=== PATIENT | female | born 1935 | race Caucasian/White ===

== ENCOUNTER 2024-06-25 22:02 | Emergency (ER) | payer MEDICARE, SELFPAY ==
--- NOTE | 2024-06-25 22:08 | XR_ITS ---
Examination: AP chest single view Technique one AP portable semiupright chest single view Exam date and time: 10/26/2023 10:35 PM Indications: Coughing low O2 saturation today. Findings: Normal heart size No pneumonia or pulmonary edema Prominent osteopenia Impression: No pneumonia or pulmonary edema
--- NOTE | 2024-06-25 22:08 | EKG_ITS ---
[facility] Test Date: 2024-06-25 Pat Name: EDWINA PINZON Department: Room: - Gender: Female Insurance Verification Rep: : [id number] Requested By: Reynaldo Douglas Order Number: [id number] Reading MD: Reynaldo Douglas Measurements Intervals [place] Rate: 76 P: 48 ID: [id number] QRS: -41 QRSD: 86 T: 28 QT: 377 QTc: 425 Interpretive Statements SINUS RHYTHM WITH SHORT ID INTERVAL LEFT AXIS DEVIATION [QRS AXIS < -30] MODERATE T-WAVE ABNORMALITY, CONSIDER ANTERIOR ISCHEMIA [-0.1+ mV T-WAVE IN V3/V4] Compared to ECG 04/19/2023 11:56:23 Short ID interval now present T-wave abnormality now present Possible ischemia now present /store/S0/[id number]/ecg/[id number].pdf
--- NOTE | 2024-06-25 22:09 | PD.EDADULT ---
ED General RME/HPI General Chief complaint: Shortness of Breath/Dyspnea Stated complaint: SOB Time Seen by Provider: 06/25/24 22:08 Arrival date/time: 06/25/24 22:02 CC: Oxygen saturations of 88% with a cough HPI patient presents to the ER via EMS with stable vital signs after the son states the patient, who recently was diagnosed with pneumonia and started on azithromycin, has noted to have oxygen saturation of 88%. The patient has baseline demented and poor historian. Patient states that she has no problems . Currently patient denies chest pain difficulty breathing headache nausea vomiting or diarrhea. Has a persistent wet nonproductive cough. Related Data Home Medications ?Medication ?Instructions ?Recorded ?Confirmed levothyroxine 50 mcg tablet 50 mcg PO EVERYOTHERDAY 06/10/20 12/24/22 levothyroxine 75 mcg tablet 75 mcg PO EVERYOTHERDAY 06/10/20 12/24/22 calcitriol 0.25 mcg capsule 0.25 mcg PO MWF 12/25/22 12/25/22 Previous Rx's ?Medication ?Instructions ?Recorded acetaminophen 325 mg tablet 650 mg (2 x 325 mg) PO Q4HR PRN 12/28/22 (Tylenol) Pain Or Fever > 101 #1 tab apixaban 2.5 mg tablet (Eliquis) 2.5 mg PO BID #30 tabs 12/28/22 bisacodyl 10 mg rectal suppository 10 mg CO QDAY PRN Constipation #12 12/28/22 ea lactulose 20 gram/30 mL oral 20 ml PO DAILY #3 mL 12/28/22 solution cephalexin 500 mg capsule 500 mg PO BID #20 caps 03/30/23 azithromycin 500 mg tablet 500 mg PO QDAY 3 days #3 tabs 06/26/24 (Zithromax TRI-ZORA) cefdinir 300 mg capsule 300 mg PO BID #14 caps 06/26/24 prednisone 20 mg tablet 20 mg PO QDAY 3 days #3 tabs 06/26/24 Allergies Allergy/AdvReac Type Severity Reaction Status Date / Time ciprofloxacin Allergy Intermediate GI UPSET Verified 06/25/24 22:17 prednisone Allergy Intermediate EXTREME Verified 06/25/24 22:17 NAUSEA / VOMITING / DIARRHEA Review of Systems Review of Systems ROS Unobtainable: unobtainable due to mental status Past Medical History Past Medical History NEUROLOGIC: Negative Neurological Disorders, Cerebrovascular Accident, Transient Ischemic Attacks (TIA) or Seizures CARDIAC: Negative Cardiac Disorders, Myocardial Infarction, Hypercholesterolemia, Congestive Heart Failure or Hypertension RESPIRATORY: Negative Chronic Obstructive Pulmonary Disease (COPD) GASTROINTESTINAL: Negative Gastrointestinal Disorders, Gastrointestinal Bleed, Hemorrhoids or Gastroesophageal Reflux Disease GENITOURINARY: Negative Genitourinary Disorders, Renal Disease or Kidney Stones REPRODUCTIVE: Negative Pelvic Inflammatory Disease MUSCULOSKELETAL: Negative Musculoskeletal Disorders ENDOCRINE: Positive Endocrine Disorders and Hypothyroidism; Negative Diabetes Mellitus Type 1 or Diabetes Mellitus Type 2 HEMATOLOGIC: Negative Blood Disorders OTHER HISTORY: Positive Falls and Blood Transfusions; Negative Hospitalization, Autoimmune Disease, Down Syndrome, Developmental Delay, Blood Transfusion Reaction, Anesthesia Reactions or Cancer Family History FAMILY HISTORY: Negative Family Respiratory Disorders, Family Cardiac Disorders or Family Gastrointestinal Problems Surgical History SURGICAL: Positive Thyroidectomy Social History SMOKING STATUS: Former smoker SECOND HAND EXPOSURE: No ED Exam Narrative Physical exam: [General: Thin, but not deconditioned. Appears not in any acute distress Head normocephalic HEENT: Within acceptable limits Neck is supple nontender Chest equal chest rise nontender to palpation Respiratory: Bibasilar crackles, upper lobes clear to auscultation. CV: Rate rhythm is regular no murmurs rubs or clicks Abdomen is soft nontender no masses positive bowel sounds all 4 quadrants Back: No CVA tenderness no spinous process tenderness from cervical spine thoracic and lumbar spine Skin: Intact no petechiae rash induration ulceration or crepitus Extremities: Moving all extremity against resistance cap refill less than 2 seconds neurosensory intact Neuro: Awake alert oriented x1, person, Glascow coma 15 no focal deficits] Course Quality Measures none Orders Category Date Time Status EKG (ED ONLY) *Do not use* NOW Care 06/25/24 22:08 Completed EKG (ED Only) Stat Exams 06/25/24 22:08 Draft XR chest 1V Stat Exams 06/25/24 22:08 Completed B-Type Natriuretic Peptide Stat Lab 06/25/24 22:33 Completed CBC Stat Lab 06/25/24 22:33 Completed Comprehensive Metabolic Panel Stat Lab 06/25/24 22:33 Completed Drug Screen,Urine Stat Lab 06/25/24 22:50 Completed LDH (Lactate Dehydrogenase) Stat Lab 06/25/24 22:33 Completed Magnesium Stat Lab 06/25/24 22:33 Completed Partial Thromboplastin Time Stat Lab 06/25/24 22:33 Completed Prothrombin Time with INR Stat Lab 06/25/24 22:33 Completed Troponin I Stat Lab 06/25/24 22:33 Completed Urinalysis Stat Lab 06/25/24 22:50 Completed Azithromycin Po [Zithromax PO] Med 06/26/24 01:21 Discontinued 500 mg PO X1 ONE MethylPREDNISolone.* [SoluMEDROL Inj] Med 06/26/24 01:21 Discontinued 125 mg IVP X1 ONE Sodium Chloride 0.9% 1000 ml [Ns] 1,000 ml Med 06/26/24 01:13 Discontinued IV 999 mls/hr cefTRIAXone [Rocephin] 1,000 mg Med 06/26/24 01:13 Discontinued SODIUM CHLORIDE 0.9% (Popper) [Ns 0.9% (P)] 50 ml IV X1 Vital Signs Vital signs: Vital Signs Temperature 98.6 F 06/25/24 22:13 Pulse Rate 78 06/25/24 22:13 Respiratory Rate 14 06/25/24 22:13 Blood Pressure 162/81 H 06/25/24 22:13 Pulse Oximetry (%) 95 06/25/24 22:13 Oxygen Delivery Method Room Air 06/25/24 22:13 [facility] Patient data External records reviewed:: [facility] previous records and EMS form Clinical information provided by:: patient and EMS Social determinants that could affect healthcare access:: none Patient has the following chronic illnesses:: Hypothyroidism CKD stage III renal How is presenting disease/condition affected by chronic disease/condition?: uneffected by Evaluation data The following diagnostics were reviewed and interpreted by me:: lab results, radiology exam(s) and EKG tracing(s) Lab and/or radiology exams considered but not ordered:: EKG performed at 2220 shows a ventricular rate of 76 CO interval 117 QRS of 86 QTc of 407 this is sinus rhythm left axis deviation. Interpretation Summary: Pneumonia Medications Medications considered but not ordered:: None Medication administrations:: Medication Administration History Discontinued Medications Azithromycin (Azithromycin 250 Mg Tablet) 500 mg PO X1 ONE Stop: 06/26/24 01:22 Last Admin: 06/26/24 01:43 Dose: 500 mg Documented By: NELSON Ceftriaxone Sodium 1,000 mg/ (Sodium Chloride) 50 mls @ 100 mls/hr IV X1 ONE Stop: 06/26/24 01:42 Last Infusion: 06/26/24 02:23 Dose: Infused Documented By: Admin: 06/26/24 01:43 Dose: 100 mls/hr Documented By: NELSON Sodium Chloride (Ns) 1,000 mls @ 999 mls/hr IV .Q1H1M ONE Stop: 06/26/24 02:13 Last Admin: 06/26/24 01:42 Dose: 999 mls/hr Documented By: NELSON Methylprednisolone Sodium Succinate (Methylprednisolone Sod Succ 62.5 Mg/Ml 2ml Vial) 125 mg IVP X1 ONE Stop: 06/26/24 01:22 Last Admin: 06/26/24 01:43 Dose: 125 mg Documented By: SF None Consultations Consultation(s) initiated? (list below): No Diagnosis Differential Diagnosis ED Complaint MDM: Pneumonia hypoxemia CHF Most likely diagnosis given after review of the tests above:: Pneumonia Admission Indicated Admission indicated?: not indicated Explain why admission is indicated or not indicated:: Stable for outpatient follow-up Admission Request Was there a request for admission?: No Disposition Plan Disposition Plan: Discharge Discharge Attestation Discharge Attestation: The patient and all family members were given an opportunity to ask questions and understood the discharge instructions. Discharge instructions specifically effects, indications for sooner follow up or return to the emergency department, and the expected course of current diagnosis. Patient condition: Stable Medical Decision Making Differential Diagnosis Differential Diagnosis: Pneumonia hypoxemia CHF Lab Data 06/25/24 22:33 06/25/24 22:33 Labs: Lab Results 06/25/24 06/25/24 Range/Units 22:33 22:50 WBC 6.8 (3.6-11.0) Thou/mm3 RBC 4.07 (4.00-5.20) Miln/mm3 Hgb 13.0 (12.0-16.0) g/dL Hct 38.6 (36.0-46.0) % MCV 95 (80-100) fL MCH 31.9 (25.0-35.0) pg MCHC 33.7 (31.0-37.0) g/dl RDW Std Deviation 48.5 H (36.4-46.3) fL Plt Count 205 (140-440) Thou/mm3 Neut % (Auto) 60 (37-80) % Lymph % (Auto) 23 (10-50) % Andrews % (Auto) 14 H (0-12) % Eos % (Auto) 2 (0-10) % Baso % (Auto) 0 (0-2.5) % Neut # (Auto) 4.1 (1.8-7.7) Thou/mm3 Lymph # (Auto) 1.6 (1.0-4.8) Thou/mm3 Andrews # (Auto) 0.9 H (0.0-0.8) Thou/mm3 Eos # (Auto) 0.2 (0.0-0.5) Thou/mm3 Baso # (Auto) 0.0 (0.0-0.2) Thou/mm3 Immature Gran # (Auto) 0.02 H (0.00-0.00) Thou/mm3 Absolute Nucleated RBC 0.00 (0.00-0.00) Thou/mm3 Immature Gran % 0 (0-0) % Nucleated RBC % 0 (0) /100 WBC PT 11.5 (9.0-12.2) Seconds INR 1.1 (0.9-1.3) APTT 29.1 (22.0-36.0) Seconds Sodium 136 (136-145) mMol/L Potassium 4.9 (3.4-5.1) mMol/L Chloride 102 (98-107) mMol/L Carbon Dioxide 24.9 (20.0-31.0) mMol/L Anion Gap 9 (7-16) BUN 19 (9-23) mg/dL Creatinine 1.4 H (0.6-1.3) mg/dL Estim Creat Clear Calc 23.9 L (>60) mL/min eGFR 36 L (60 - ) See Note BUN/Creatinine Ratio 14 (12-20) Ratio Glucose 92 (74-106) mg/dL Calculated Osmolality 274 L (275-295) Calcium 8.8 (8.3-10.6) mg/dL Corrected Calcium 9.0 (8.5-10.1) mg/dL Magnesium 2.0 (1.6-2.6) mg/dL Total Bilirubin 0.5 (0.3-1.2) mg/dL AST 18 (0-34) U/L ALT 13 (10-49) U/L Alkaline Phosphatase 46 (46-116) U/L Lactate Dehydrogenase 163 (120-246) U/L Troponin I < 0.020 (0.0-0.045) ng/mL B-Natriuretic Peptide 39 (0-100) pg/mL Total Protein 6.8 (5.7-8.2) gm/dL Albumin 3.7 (3.4-4.8) gm/dL Globulin 3.1 (2.3-3.5) gm/dL Albumin/Globulin Ratio 1.2 (1.2-2.2) Ur Collection Type Clean Catch Urine Color Lt-Yellow (Lt Yel-Yel) Urine Clarity Turbid A (Clear/Hazy) Urine pH 6.0 (5.0-7.0) Ur Specific [place] 1.014 (1.001-1.035) Urine Protein Negative (Neg - Trace) Urine Glucose (UA) Negative (Negative) Urine Ketones Negative (Negative) Urine Blood 1+ A (Negative) Urine Nitrite Positive (Negative) Urine Bilirubin Negative (Negative) Urine Urobilinogen (Auto) Negative (0.0-1.0) mg/dL Ur Leukocyte Esterase Positive (Negative) Urine RBC 6 H (0-3) /hpf Urine WBC 158 H (0-5) /hpf Ur Squamous Epith Cells 1 (0-5) /hpf Urine Bacteria 4+ A (None) Urine Opiates Screen Negative (Negative) Urine Fentanyl Screen Negative (Negative) Ur Barbiturates Screen Negative (Negative) U Amphetamin/Meth Scrn Negative (Negative) U Benzodiazepines Scrn Negative (Negative) U Cocaine Metab Screen Negative (Negative) U Marijuana (THC) Screen Negative (Negative) Discharge Plan Plan Patient Disposition: HOME (Self Care) Prescriptions/Referrals Prescriptions/Med Rec: New prednisone 20 mg tablet 20 mg PO QDAY 3 Days Qty: 3 0RF Taper: Prednisone Taper 20 mg DAILY for 2 Days and 0 Hour 10 mg DAILY for 2 Days and 0 Hour 5 mg DAILY for 7 Days and 0 Hour cefdinir 300 mg capsule 300 mg PO BID Qty: 14 0RF azithromycin [Zithromax TRI-ZORA] 500 mg tablet 500 mg PO QDAY 3 Days Qty: 3 0RF No Action levothyroxine 75 mcg tablet 75 mcg PO EVERYOTHERDAY Patient Comments: TK 1 T PO EVERY OTHER DAY ALTERNATE THE 75MCG WITH THE 50MCG levothyroxine 50 mcg tablet 50 mcg PO EVERYOTHERDAY Patient Comments: Take 1 tablet by mouth as directed Rx Instructions: On weekends only cephalexin 500 mg capsule 500 mg PO BID Qty: 20 0RF calcitriol 0.25 mcg capsule 0.25 mcg PO MWF Patient Comments: TAKE 1 CAPSULE BY MOUTH 3 TIMES WEEKLY acetaminophen [Tylenol] 325 mg Tablet 650 mg PO Q4HR PRN (Reason: Pain Or Fever > 101) Qty: 1 0RF Eliquis 2.5 mg Tablet 2.5 mg PO BID Qty: 30 0RF bisacodyl 10 mg Suppository 10 mg CO QDAY PRN (Reason: Constipation) Qty: 12 0RF lactulose 20 gram/30 mL Solution 20 ml PO DAILY Qty: 3 0RF Referrals: No Primary/Family,Physician [Primary Care Provider] - In 1 week Problem List Clinical Impression: UTI (urinary tract infection), Lower respiratory infection Patient/Caregiver Discharge Instructions Discharge Activity: activity as tolerated Education Materials: ED Bronchitis, Antibiotics (Child), ED CYSTITIS Female Adult Additional Instructions: Discharge instructions from Dr. Hi: --No physical exertion for 3 days to help rest the lungs. ?No smoking or exposure to smoking or pets or dust or cold or humidity. --Zithromax and cefdinir to kill the germs causing the bronchitis and UTI. --For good hydration, increase oral fluid and maintain clear urine. If dark or yellow, increase oral fluid. --Prednisone to help decrease the swelling in the airways. --See a private doctor next week if not completely better. --Seek immediate medical care with worsening or with any concerns. Print Language: Indonesian Stand Alone Forms: Lela Award Info., Patient Portal Info Letter Attestation Attestation I took over the care from Reynaldo Talavera NP at 11 PM on 06/25/24, see his notes for complete H&P and ED course. I reviewed all diagnostic test results here. At this point, diagnoses include UTI and lower respiratory infection. Treatment here included Rocephin and Zithromax and Solu-Medrol and IV fluid. Significant improvement noted. Recommended a trial of outpatient treatment. Based on my best medical judgment, made decision no further evaluation or treatment indicated at this time. Patient (and son) understands and agrees to the discharge instructions customized and printed, see below. Discharge instructions from Dr. Hi: --No physical exertion for 3 days to help rest the lungs. ?No smoking or exposure to smoking or pets or dust or cold or humidity. --Zithromax and cefdinir to kill the germs causing the bronchitis and UTI. --For good hydration, increase oral fluid and maintain clear urine. If dark or yellow, increase oral fluid. --Prednisone to help decrease the swelling in the airways. --See a private doctor next week if not completely better. --Seek immediate medical care with worsening or with any concerns. Glynn Hi MD
[2024-06-25 22:13] VITALS: BP 162/81; PULSE 78; RESP 14; TEMP 37; O2SAT 95
[2024-06-25 22:17] VITALS: PULSE 76; RESP 14; O2SAT 95
[2024-06-25 22:20] VITALS: BMI 25.6
[2024-06-25 22:21] VITALS: BP 162/81; PULSE 76; RESP 17; O2SAT 95
[2024-06-25 22:44] LABS: Basophils % (Auto) 0 % (0-2.5); Eosinophils # (Auto) 0.2 Thou/mm3 (0.0-0.5); Eosinophils % (Auto) 2 % (0-10); Hematocrit 38.6 % (36.0-46.0); Immature Granulocytes % (Auto) 0 % (0-0); Immature Granulocytes Auto 0.02 Thou/mm3 (0.00-0.00); Lymphocytes # (Auto) 1.6 Thou/mm3 (1.0-4.8); Lymphocytes % (Auto) 23 % (10-50); Mean Corpuscular HGB Conc 33.7 g/dl (31.0-37.0); Mean Corpuscular Hemoglobin 31.9 pg (25.0-35.0); Mean Corpuscular Volume 95 fL (80-100); Monocytes # (Auto) 0.9 Thou/mm3 (0.0-0.8); Monocytes % (Auto) 14 % (0-12); Neutrophils # (Auto) 4.1 Thou/mm3 (1.8-7.7); Neutrophils % (Auto) 60 % (37-80); Nucleated Red Blood Cell % 0 /100 WBC (0); Platelet Count 205 Thou/mm3 (140-440); RDW Standard Deviation 48.5 fL (36.4-46.3); Red Blood Count 4.07 Miln/mm3 (4.00-5.20); White Blood Count 6.8 Thou/mm3 (3.6-11.0)
[2024-06-25 23:01] LABS: INR 1.1 (0.9-1.3); Partial Thromboplastin Time 29.1 Seconds (22.0-36.0); Prothrombin Time 11.5 Seconds (9.0-12.2)
[2024-06-25 23:02] LABS: B-Type Natriuretic Peptide 39 pg/mL (0-100)
[2024-06-25 23:03] LABS: Alanine Aminotransferase 13 U/L (10-49); Albumin, Serum 3.7 gm/dL (3.4-4.8); Albumin/Globulin Ratio 1.2 (1.2-2.2); Alkaline Phosphatase 46 U/L (46-116); Anion Gap 9 (7-16); Aspartate Amino Transferase 18 U/L (0-34); BUN/Creatinine Ratio 14 Ratio (12-20); Bilirubin,Total 0.5 mg/dL (0.3-1.2); Blood Urea Nitrogen 19 mg/dL (9-23); Calcium 8.8 mg/dL (8.3-10.6); Carbon Dioxide 24.9 mMol/L (20.0-31.0); Chloride 102 mMol/L (98-107); Creatinine (Component) 1.4 mg/dL (0.6-1.3); Estimated Creatinine Clearance 23.9 mL/min (>60); Globulin 3.1 gm/dL (2.3-3.5); Glucose 92 mg/dL (74-106); LDH (Lactate Dehydrogenase) 163 U/L (120-246); Osmolality,Calculated 274 (275-295); Potassium 4.9 mMol/L (3.4-5.1); Sodium 136 mMol/L (136-145); Total Protein 6.8 gm/dL (5.7-8.2); Troponin I < 0.020 ng/mL (0.0-0.045); eGFR 36 See Note
[2024-06-25 23:18] LABS: Collection Type, Urine Clean Catch
[2024-06-25 23:26] LABS: Bacteria,Urine 4+; Bilirubin,Urine Negative (Negative); Blood,Urine 1+ (Negative); Clarity,Urine Turbid (Clear/Hazy); Color,Urine Lt-Yellow (Lt Yel-Yel); Glucose, Urine Negative (Negative); Ketones,Urine Negative (Negative); Leukocyte Esterase,Urine Positive (Negative); Nitrite,Urine Positive (Negative); Protein,Urine Negative (Neg - Trace); RBC,Urine 6 /hpf (0-3); Specific Gravity,Urine 1.014 (1.001-1.035); Squamous Epithelial Cell,Urine 1 /hpf (0-5); Urobilinogen,Urine Negative mg/dL (0.0-1.0); WBC,Urine 158 /hpf (0-5)
[2024-06-25 23:31] LABS: Amphetamine/Methamp Scrn,U Negative (Negative); Barbiturate Screen,Urine Negative (Negative); Benzodiazepines Screen,Urine Negative (Negative); Benzoylecgonine Screen, Ur Negative (Negative); Fentanyl Screen,Urine Negative (Negative); Opiate Screen,Urine Negative (Negative); THC Screen,Urine Negative (Negative)
[2024-06-26 00:15] VITALS: BP 128/68; PULSE 72; RESP 16; TEMP 36.9; O2SAT 94
[2024-06-26] MEDS: SODIUM CHLORIDE 0.9% 1000 ML 1,000 ML 999 ML IV (01:42)
[2024-06-26] MEDS: MethylPREDNISolone SOD SUCC 62.5 MG/ML 2ML VIAL 125 MG IVP (01:43)
[2024-06-26] MEDS: cefTRIAXone 1,000 MG in SODIUM CHLORIDE 0.9% (Popper) 50 ML 100 MG IV (01:43)
[2024-06-26] MEDS: AZITHROMYCIN 250 MG TABLET 500 MG PO (01:43)
[2024-06-26 02:43] VITALS: BP 138/87; PULSE 82; RESP 15; O2SAT 92
== END 2024-06-26 02:43 | disposition home or self-care (01) ==
PROVIDERS: Registered Nurse General Practice; Emergency Provider Emergency Medicine
DX: N39.0 Urinary tract infection, site not specified (principal); J22 Unspecified acute lower respiratory infection; F03.90 Unspecified dementia, unspecified severity, without behavioral disturbance, psychotic disturbance, mood disturbance, and anxiety
CPT/HCPCS: 36415; 71045; 80053; 80307; 81001; 83615; 83735; 83880; 84484; 85025; 85610; 85730; 87400; 87811; 93005; 96365; 96375; 99284; J0696; J2919; J7030; J7050; A9270